=== PATIENT | male | born 1995 | race Caucasian/White ===

== ENCOUNTER 2017-03-04 10:42 | Emergency (ER) | payer OTHER ==
--- NOTE | 2017-03-04 10:58 | EDM.PDOC ---
ED HPI GENERAL MEDICAL PROBLEM - General Chief Complaint: Abdominal Pain Stated Complaint: ABDOMINAL PAIN Time Seen by Provider: 03/04/17 10:52 Source of Information: Reports: Patient History Limitations: Reports: No Limitations - History of Present Illness INITIAL COMMENTS - FREE TEXT/NARRATIVE: HISTORY AND PHYSICAL: []21-year-old male presents with left epigastric pain History of Present Illness: []Patient has been present for the last 2-3 days History of positive H. pylori and ulcer pain is similar to previous illness His history of ACL injury and repair Last bowel movement yesterday and did not pay attention but suspects that it was black. Patient is a smoker Review of Systems: As per history of present illness and below otherwise all systems reviewed and negative. Past medical history: As per history of present illness and as reviewed below otherwise noncontributory. Surgical history: As per history of present illness and as reviewed below otherwise noncontributory. Social history: No reported history of drug or alcohol abuse. Family history: As per history of present illness and as reviewed below otherwise noncontributory. Physical exam: Alert and oriented. Speaking in full sentences. Answered questions appropriately.. HEENT: Atraumatic, normocehpalic, pupils reactive, negative for conjunctival pallor or scleral icterus, mucous membranes moist, throat clear, neck supple, nontender, trachea midline. Lungs: Clear to auscultation, breath sounds equal bilaterally, chest non tender. Heart: S1S2, regular, negative for clicks, rubs, or JVD. Abdomen: Soft, nondistended, tender with palpation left upper quadrant no rebound no guarding. Negative for masses or hepatossplenmegaly. Negative for costovertebral tenderness. Pelvis: Stable nontender. Genitourinary: Deferred. Rectal: Deferred Extremities: Atraumatic, negative for cords or calf pain. Neurovascular unremarkable. Neuro: Awake, alert, oriented. Cranial nerves II through XII unremarkable. Cerebellum unremarkable. Motor and sensory unremarkable throughout. Exam nonfocal. Patient improved after GI cocktail was given Diagnostics: [CBC CMP H. pylori saline lock] Therapeutics: [Protonix IV] GI cocktail Impression: [Ulcer Positive Hemoccult] Plan: [Discharge to home Follow up with your PCP Consider surgical intervention with EGD] If symptoms worsen any vomiting of blood you need to return immediately for further evaluation Definitive disposition and diagnosis as appropriate pending reevaluation and review of above. Onset: Gradual Duration: Day(s): (2-3) Quality: Reports: Ache, Burning Severity: Moderate Upper Abdominal Pain Score (Numeric/FACES): 7 - Related Data Allergies Allergy/AdvReac Type Severity Reaction Status Date / Time Sulfa (Sulfonamide Allergy Hives Verified 03/04/17 10:49 Antibiotics) Home Meds: Home Meds GI Cocktail 30 ml PO TID PRN #16 oz 03/04/17 [Rx] Gabapentin [Neurontin] 1 cap PO BID 03/04/17 [History] Pantoprazole Sodium [Protonix] 40 mg PO BID #30 tablet. 03/04/17 [Rx] ED ROS GENERAL - Review of Systems Review Of Systems: ROS reveals no pertinent complaints other than HPI. ED EXAM, GI/ABD - Physical Exam Exam: See Below (see dictation) Course - Vital Signs Last Recorded V/S: Last Vital Signs Temp 36.4 C 03/04/17 10:50 Pulse 73 03/04/17 12:14 Resp 18 03/04/17 12:14 BP 126/84 03/04/17 12:14 Pulse Ox 99 03/04/17 12:14 - Orders/Labs/Meds Orders: Active Orders 24 hr Category Date Time Status Hemoccult [Fecal Occult Blood Collection] [RC] Care 03/04/17 11:07 Active ASDIRECTED Sodium Chloride 0.9% [Saline Flush] Med 03/04/17 10:59 Active 10 ml FLUSH ASDIRECTED PRN Sodium Chloride 0.9% [Saline Flush] Med 03/04/17 10:59 Active 2.5 ml FLUSH ASDIRECTED PRN Saline Lock Insert [OM.PC] Stat Oth 03/04/17 10:58 Ordered Medication Orders Sodium Chloride (Saline Flush) 10 ml FLUSH ASDIRECTED PRN PRN Reason: Keep Vein Open Last Admin: 03/04/17 11:23 Dose: 10 ml Sodium Chloride (Saline Flush) 2.5 ml FLUSH ASDIRECTED PRN PRN Reason: Keep Vein Open Last Admin: 03/04/17 11:23 Dose: 2.5 ml Labs: Laboratory Tests 03/04/17 03/04/17 03/04/17 Range/Units 11:10 11:10 11:10 WBC 6.26 (4.0-11.0) K/uL RBC 5.48 (4.50-5.90) M/uL Hgb 17.1 H (13.0-17.0) g/dL Hct 49.3 (38.0-50.0) % MCV 90.0 (80.0-98.0) fL MCH 31.2 (27.0-32.0) pg MCHC 34.7 (31.0-37.0) g/dL RDW Std Deviation 40.1 (28.0-62.0) fl RDW Coeff of Paco 12 (11.0-15.0) % Plt Count 261 (150-400) K/uL MPV 9.40 (7.40-12.00) fL Neut % (Auto) 58.9 (48.0-80.0) % Lymph % (Auto) 28.9 (16.0-40.0) % [place] % (Auto) 10.5 (0.0-15.0) % Eos % (Auto) 1.4 (0.0-7.0) % Baso % (Auto) 0.3 (0.0-1.5) % Neut # (Auto) 3.7 (1.4-5.7) K/uL Lymph # (Auto) 1.8 (0.6-2.4) K/uL [place] # (Auto) 0.7 (0.0-0.8) K/uL Eos # (Auto) 0.1 (0.0-0.7) K/uL Baso # (Auto) 0.0 (0.0-0.1) K/uL Sodium 139 (136-146) mmol/L Potassium 4.2 (3.5-5.1) mmol/L Chloride 103 (98-110) mmol/L Carbon Dioxide 26 (21-31) mmol/L BUN 12 (6.0-23.0) mg/dL Creatinine 1.0 (0.6-1.5) mg/dL Est Cr Clr Drug Dosing 123.41 mL/min Estimated GFR (MDRD) > 60.0 ml/min Glucose 93 (60-110) mg/dL Calcium 10.0 (8.8-10.8) mg/dL Total Bilirubin 0.9 (0.1-1.5) mg/dL AST 23 (5-40) IU/L ALT 20 (8-54) IU/L Alkaline Phosphatase 105 (40-150) Total Protein 8.2 H (6.0-8.0) g/dL Albumin 4.7 (3.5-5.0) g/dL Globulin 3.5 (2.0-3.5) g/dL Albumin/Globulin Ratio 1.3 (1.3-2.8) H. pylori IgG Antibody NEGATIVE (NEG) Meds: Medications Generic Name Dose Route Start Last Admin Trade Name Freq PRN Reason Stop Dose Admin Sodium Chloride 10 ml 03/04/17 10:59 03/04/17 11:23 Saline Flush FLUSH 10 ml ASDIRECTED PRN Administration Keep Vein Open Sodium Chloride 2.5 ml 03/04/17 10:59 03/04/17 11:23 Saline Flush FLUSH 2.5 ml ASDIRECTED PRN Administration Keep Vein Open Discontinued Medications Generic Name Dose Route Start Last Admin Trade Name Freq PRN Reason Stop Dose Admin Al Hydroxide/Mg Hydroxide 15 0 ml 03/04/17 11:07 03/04/17 11:19 ml/ Metoclopramide HCl 5 mg/ PO 03/04/17 11:08 25 each Lidocaine HCl 5 ml ONETIME ONE Administration Pantoprazole Sodium 80 mg 03/04/17 10:59 03/04/17 11:19 Protonix Iv IVPUSH 03/04/17 11:00 80 mg .BOLUS ONE Administration Pantoprazole Sodium Confirm 03/04/17 11:12 03/04/17 11:17 Protonix Iv Administered 03/04/17 11:13 Not Given Dose 80 mg .ROUTE .STK-MED ONE Departure - Departure Time of Disposition: 12:30 Disposition: Home, Self-Care 01 Condition: Good Clinical Impression: Peptic ulcer Gastritis Qualifiers: Gastritis type: unspecified gastritis Chronicity: acute Gastritis bleeding: with bleeding Qualified Code(s): K29.01 - Acute gastritis with bleeding - Discharge Information Prescriptions: GI Cocktail 30 ml PO TID PRN #16 oz PRN Reason: Abdominal Pain Pantoprazole Sodium [Protonix] 40 mg PO BID #30 tablet.dr Forms: ED Department Discharge Additional Instructions: The following information is given to patients seen in the emergency department who are being discharged to home. This information is to outline your options for follow-up care. We provide all patients seen in our emergency department with a follow-up referral. The need for follow-up, as well as the timing and circumstances, are variable depending upon the specifics of your emergency department visit. If you don't have a primary care physician on staff, we will provide you with a referral. We always advise you to contact your personal physician following an emergency department visit to inform them of the circumstance of the visit and for follow-up with them and/or the need for any referrals to a consulting specialist. The emergency department will also refer you to a specialist when appropriate. This referral assures that you have the opportunity for followup care with a specialist. All of these measure are taken in an effort to provide you with optimal care, which includes your followup. Under all circumstances we always encourage you to contact your private physician who remains a resource for coordinating your care. When calling for followup care, please make the office aware that this follow-up is from your recent emergency room visit. If for any reason you are refused follow-up, please contact the emergency department at and asked to speak to the emergency department charge nurse. Prescriptions have been electronically sent to [facility] He was given a GI cocktail while in the emergency department You are also given Protonix IV. Follow-up with your primary care provider Consider that you may need EGD for further evaluation Any worsening of the bleeding any throwing up of blood you need to immediately return for reevaluation - My Orders Last 24 Hours: My Active Orders 03/04/17 10:58 Saline Lock Insert [OM.PC] Stat 03/04/17 10:59 Sodium Chloride 0.9% [Saline Flush] 10 ml FLUSH ASDIRECTED PRN Sodium Chloride 0.9% [Saline Flush] 2.5 ml FLUSH ASDIRECTED PRN 03/04/17 11:07 Hemoccult [Fecal Occult Blood Collection] [RC] ASDIRECTED - Assessment/Plan Last 24 Hours: My Active Orders 03/04/17 10:58 Saline Lock Insert [OM.PC] Stat 03/04/17 10:59 Sodium Chloride 0.9% [Saline Flush] 10 ml FLUSH ASDIRECTED PRN Sodium Chloride 0.9% [Saline Flush] 2.5 ml FLUSH ASDIRECTED PRN 03/04/17 11:07 Hemoccult [Fecal Occult Blood Collection] [RC] ASDIRECTED
[2017-03-04] MEDS ORDERED: Sodium Chloride 0.9% 2.5 ML Syringe FLUSH PRN (10:59)
[2017-03-04] MEDS ORDERED: Sodium Chloride 0.9% 10 ML Syringe FLUSH PRN (10:59)
[2017-03-04] MEDS ORDERED: Pantoprazole 40 MG Vial IVPUSH ONE (10:59)
[2017-03-04] MEDS ORDERED: Alum Hydrox/Mag Hydrox/Simeth 15 ML, Metoclopramide 5 MG, Lidocaine 2% 5 ML PO ONE ×3 (11:07)
[2017-03-04] MEDS ORDERED: Pantoprazole 40 MG Vial ONE (11:12)
[2017-03-04 11:36] LABS: CHLORIDE,CL 103 mmol/L (98-110); SODIUM,NA 139 mmol/L (136-146)
[2017-03-04 13:05] VITALS: BP 151/91
== END 2017-03-04 13:02 | disposition home or self-care (01) ==
LOC: MW.ED 10:42 → EDSEX 10:42 → MW.ED 13:02
DX: K29.01 Acute gastritis with bleeding (principal); K27.4 Chronic or unspecified peptic ulcer, site unspecified, with hemorrhage; Z88.2 Allergy status to sulfonamides
CPT/HCPCS: 36415; 80053; 85025; 86677; 96374; 99284; A9270; C9113

== ENCOUNTER 2017-08-08 08:19 | Emergency (ER) | payer OTHER ==
--- NOTE | 2017-08-08 08:27 | EDM.PDOC ---
ED HPI GENERAL MEDICAL PROBLEM - General Chief Complaint: Respiratory Problem Stated Complaint: COUGHING AND SINUS INFECTION Time Seen by Provider: 08/08/17 08:27 Source of Information: Reports: Patient - History of Present Illness INITIAL COMMENTS - FREE TEXT/NARRATIVE: HISTORY AND PHYSICAL: History of present illness: [Patient has sinus infection left greater than right for 2 weeks associated with cough no fever nausea vomiting chills sweats no chest pain shortness breath headache dizziness palpitation about a urine symptoms Patient is smoking history although he has not smoked over the last month ] Review of systems: As per history of present illness and below otherwise all systems reviewed and negative. Past medical history: As per history of present illness and as reviewed below otherwise noncontributory. Surgical history: As per history of present illness and as reviewed below otherwise noncontributory. Social history: No reported history of drug or alcohol abuse. Family history: As per history of present illness and as reviewed below otherwise noncontributory. Physical exam: HEENT: Atraumatic, normocephalic, pupils reactive, negative for conjunctival pallor or scleral icterus, mucous membranes moist, throat clear, neck supple, nontender, trachea midline. Lungs: Clear to auscultation, breath sounds equal bilaterally, chest nontender. Heart: S1S2, regular, negative for clicks, rubs, or JVD. Abdomen: Soft, nondistended, nontender. Negative for masses or hepatosplenomegaly. Negative for costovertebral tenderness. Pelvis: Stable nontender. Genitourinary: Deferred. Rectal: Deferred. Extremities: Atraumatic, negative for cords or calf pain. Neurovascular unremarkable. Neuro: Awake, alert, oriented. Cranial nerves II through XII unremarkable. Cerebellum unremarkable. Motor and sensory unremarkable throughout. Exam nonfocal. Diagnostics: [Influenza Chest 2 views ] Therapeutics: [Azithromycin 250 mg dosing HFA [id number] symptomatic therapies discussed] Impression: [Cough Sinus infection] Definitive disposition and diagnosis as appropriate pending reevaluation and review of above. Middle Chest Pain Score (Numeric/FACES): 4 - Related Data Allergies Allergy/AdvReac Type Severity Reaction Status Date / Time Sulfa (Sulfonamide Allergy Hives Verified 08/08/17 08:48 Antibiotics) Home Meds: Home Meds Gabapentin [Neurontin] 1 cap PO BID 03/04/17 [History] Past Medical History Gastrointestinal History: Reports: Helicobacter Pylori, Other (See Below) Other Gastrointestinal History: non specific ulcer Musculoskeletal History: Reports: Other (See Below) Other Musculoskeletal History: chronic shoulder pain Psychiatric History: Reports: None - Infectious Disease History Infectious Disease History: Reports: None - Past Surgical History Musculoskeletal Surgical History: Reports: Other (See Below) Other Musculoskeletal Surgeries/Procedures:: right knee ACL surgery Social & Family History - Tobacco Use Smoking Status *Q: Current Every Day Smoker Years of Tobacco use: 7 Packs/Tins Daily: 0.4 ED ROS GENERAL - Review of Systems Review Of Systems: ROS reveals no pertinent complaints other than HPI. ED EXAM, GENERAL - Physical Exam Exam: See Below Course - Vital Signs Last Recorded V/S: Last Vital Signs Temp 97.9 F 08/08/17 08:45 Pulse 76 08/08/17 08:45 Resp 20 08/08/17 08:45 BP 124/75 08/08/17 08:45 Pulse Ox 97 08/08/17 08:45 - Orders/Labs/Meds Orders: Active Orders 24 hr Category Date Time Status Chest 2V [CR] Stat Exams 08/08/17 08:21 Taken Departure - Departure Time of Disposition: 09:02 Disposition: Home, Self-Care 01 Condition: Good Clinical Impression: Acute bronchitis, Acute sinusitis - Discharge Information Referrals: PCP,None [Primary Care Provider] - Forms: ED Department Discharge Additional Instructions: Medication as prescribed [id number] symptomatic therapy is discussed Return if symptoms persist or worsen Follow-up with primary care in 2 weeks [facility] - Primary [facility] [address] [place] [address] The following information is given to patients seen in the emergency department who are being discharged to home. This information is to outline your options for follow-up care. We provide all patients seen in our emergency department with a follow-up referral. The need for follow-up, as well as the timing and circumstances, are variable depending upon the specifics of your emergency department visit. If you don't have a primary care physician on staff, we will provide you with a referral. We always advise you to contact your personal physician following an emergency department visit to inform them of the circumstance of the visit and for follow-up with them and/or the need for any referrals to a consulting specialist. The emergency department will also refer you to a specialist when appropriate. This referral assures that you have the opportunity for follow-up care with a specialist. All of these measure are taken in an effort to provide you with optimal care, which includes your follow-up. Under all circumstances we always encourage you to contact your private physician who remains a resource for coordinating your care. When calling for follow-up care, please make the office aware that this follow-up is from your recent emergency room visit. If for any reason you are refused follow-up, please contact the [facility] emergency department at and asked to speak to the emergency department charge nurse. - My Orders Last 24 Hours: My Active Orders 08/08/17 08:21 Chest 2V [CR] Stat - Assessment/Plan Last 24 Hours: My Active Orders 08/08/17 08:21 Chest 2V [CR] Stat
[2017-08-08 09:17] VITALS: BP 121/68
--- NOTE | 2017-08-10 17:03 | CR ---
EXAM DATE: 08/08/17 PATIENT'S AGE: 21 Patient: JONATHAN DICK Facility: [place], [place] Site . Site : 1995 Study: XRay Chest [id number]/[id number] 8:52:05 AM Ordering Physician: Doctor Cordova Final Report: INDICATION: COUGH/CONGESTION X 2 WEEKS INDICATION: Cough and congestion. TECHNIQUE: Two-view. FINDINGS: Heart size is within normal limits. The lungs demonstrate no acute infiltrate. IMPRESSION: No significant infiltrate is identified. Dictated by Anand Quintana MD @ 08/08/2017 9:15:38 AM Dictated by: Anand Quintana MD @ 08/08/2017 09:15:45 (Electronic Signature) Report Signed by Proxy. KOBI
== END 2017-08-08 09:16 | disposition home or self-care (01) ==
LOC: MW.ED 08:19
DX: J20.9 Acute bronchitis, unspecified (principal); J01.90 Acute sinusitis, unspecified; F17.210 Nicotine dependence, cigarettes, uncomplicated; Z88.2 Allergy status to sulfonamides
CPT/HCPCS: 71046; 71046-26; 87804; 99283